=== PATIENT | male | born 1985 | race Caucasian/White ===

== ENCOUNTER 2020-06-19 14:20 | Emergency (ER) | payer SELFPAY ==
--- NOTE | 2020-06-19 14:24 | ED.PDOC ---
History of Present Illness - General Time Seen by Provider: 06/19/20 14:21 Departure - Departure Disposition: Discharge to Home or Self Care
--- NOTE | 2020-06-19 14:28 | ED.PDOC ---
History of Present Illness - General Stated Complaint: Possible COVID-19 infection Time Seen by Provider: 06/19/20 14:21 - History of Present Illness Initial Comments: Patient was exposed to COVID-19 by a coworker with who he works closely on a daily basis. Patient has symptoms for 2 days. He complains of headache, dyspnea and a dry cough. He also complains of occasional fever and chills. He denies abdominal pain vomiting or diarrhea. Patient does not have a history of prior respiratory illness. Timing/Duration: other - 2 days Severity: moderate Improving Factors: nothing Worsening Factors: nothing Associated Symptoms: fever/chills, headaches Allergies/Adverse Reactions: Allergies NO KNOWN ALLERGY Allergy (Verified 06/19/20 15:05) Review of Systems - Review of Systems Constitutional: States: chills, fever, malaise EENTM: States: throat pain Respiratory: States: see HPI, cough, short of breath Cardiology: States: no symptoms reported. Denies: chest pain Genitourinary: States: no symptoms reported Musculoskeletal: States: no symptoms reported Skin: States: no symptoms reported Neurological: States: no symptoms reported Endocrine: States: no symptoms reported Hematologic/Lymphatic: States: no symptoms reported Family Medical History - Family History Father Living Status: Hx Family Cancer: Yes - Lung Physical Exam - Physical Exam General Appearance: Alert, Comfortable Eye Exam: bilateral normal Ears, Nose, Throat: normal ENT inspection, normal pharynx Neck: non-tender, full range of motion Respiratory: normal breath sounds Cardiovascular/Chest: regular rate, rhythm Gastrointestinal/Abdominal: normal bowel sounds, non tender, soft Back Exam: normal inspection, no CVA tenderness Extremity: normal range of motion, no pedal edema, no calf tenderness 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 Single view chest x-ray reading negative. Departure - Departure Clinical Impression: Malaise, Suspected COVID-19 virus infection, Respiratory syncytial virus infection Time of Disposition: 15:44 Disposition: Discharge to Home or Self Care Condition: Good Instructions: Coronavirus Disease 2019 (COVID-19) (DC) Diet: resume usual diet Activity: other - Rest, avoid unnecessary exertion Comments: NO WORK FOR 4 DAYS. You should not return to work until you are totally free of all symptoms for at least 4 days. Use Tylenol and Motrin for aches and chills or and fever. Return the emergency room if you have increasing difficulty breathing.
[2020-06-19 15:05] VITALS: O2SAT 98
--- NOTE | 2020-06-19 15:24 | RAD ---
EXAMINATION: Chest,1 View. HISTORY: 35 years Male. Cough, suspected Covid. . . TECHNIQUE: XR CHEST 1 VIEW COMPARISON: None. FINDINGS: Limited examination due to prominent soft tissue attenuation. Cardiac silhouette size is normal. No evidence of vascular congestion. There is no pulmonary consolidation. No radiographically visible pneumothorax. No definite evidence of pleural effusion. No visible acute displaced fracture in the regional skeleton. IMPRESSION: No acute cardiopulmonary disease in the visualized chest. Electronically signed by: Seymour Negron MD 06/19/2020 3:23 PM [facility]
[2020-06-19 16:16] VITALS: BP 114/72; TEMP 98.7
== END 2020-06-19 16:01 | disposition home or self-care (01) ==
LOC: ER 14:20
DX: J98.8 Other specified respiratory disorders (principal); B97.4 Respiratory syncytial virus as the cause of diseases classified elsewhere; Z20.822 Contact with and (suspected) exposure to COVID-19